=== PATIENT | female | born 1935 | race Caucasian/White ===

== ENCOUNTER 2021-02-19 12:53 | Emergency (ER) | payer MEDICARE ==
[~2021-02-19] VITALS: Ht 162.6 cm; Wt 81.8 kg
[~2021-02-19 12:53] MED LIST: CHOL100025 PO; CLOP75TA33 PO; CYAN500T71 PO; DONE-46 PO; HYDR-4069 PO; HYDR25TA4 PO; LOSA50TA64 PO; MAGN400C PO; MULT-1085 PO; NOR5T PO; PANT40TA54 PO; QUET25TA34 PO; SERT-432 PO; UBID100C16 PO; VITA-268 PO; WARF-55 PO
[2021-02-19] MEDS ORDERED: tranexamic acid 100mg/ml inj. TP ONE (14:35)
[2021-02-19] MEDS ORDERED: oxymetazoline 15 ML nasal spray NS ONE (14:35)
--- NOTE | 2021-02-19 14:52 | NUR ---
PA AT BEDSIDE, PLACING GAUZE SOAKED 2X2 IN R NOSTRIL, CLAMP APPLIED
[2021-02-19 17:05] VITALS: BP 150/65
== END 2021-02-19 17:06 | disposition home or self-care (01) ==
LOC: ER 12:53
DX: R04.0 Epistaxis (principal); I10 Essential (primary) hypertension; E11.9 Type 2 diabetes mellitus without complications; M19.90 Unspecified osteoarthritis, unspecified site; G89.29 Other chronic pain; Z90.710 Acquired absence of both cervix and uterus; Z98.890 Other specified postprocedural states; Z88.6 Allergy status to analgesic agent; Z88.1 Allergy status to other antibiotic agents; Z88.8 Allergy status to other drugs, medicaments and biological substances; Z79.01 Long term (current) use of anticoagulants; Z79.899 Other long term (current) drug therapy; Z86.73 Personal history of transient ischemic attack (TIA), and cerebral infarction without residual deficits
CPT/HCPCS: 30901; 99284